=== PATIENT | female | born 1960 | race Caucasian/White ===

== ENCOUNTER 2016-09-16 15:46 | Outpatient (CLI) | payer OTHER, MEDICARE | END 2016-09-16 15:47 | disposition home or self-care (01) | DX: M47.812 Spondylosis without myelopathy or radiculopathy, cervical region (principal); M50.30 Other cervical disc degeneration, unspecified cervical region ==

== ENCOUNTER 2016-09-24 12:45 | Outpatient (CLI) | payer OTHER, MEDICARE | END 2016-09-24 12:46 | disposition home or self-care (01) | DX: M50.221 Other cervical disc displacement at C4-C5 level (principal); M43.12 Spondylolisthesis, cervical region; M47.812 Spondylosis without myelopathy or radiculopathy, cervical region ==

== ENCOUNTER 2016-11-30 10:49 | Outpatient (CLI) | payer OTHER, MEDICARE | END 2016-11-30 10:50 | disposition home or self-care (01) | DX: E03.9 Hypothyroidism, unspecified (principal); I10 Essential (primary) hypertension; Z79.899 Other long term (current) drug therapy ==

== ENCOUNTER 2016-12-24 13:51 | Outpatient (CLI) | payer OTHER, MEDICARE | END 2016-12-24 13:52 | disposition home or self-care (01) | DX: D17.79 Benign lipomatous neoplasm of other sites (principal) ==

== ENCOUNTER 2017-08-09 09:30 | Outpatient (CLI) | payer OTHER, MEDICARE ==
[2017-08-09 13:48] LABS: BASOPHILS % (AUTO) 0.8 %; EOSINOPHILS # (AUTO) 0.4 10^3/uL (0.0-0.7); EOSINOPHILS % (AUTO) 6.2 %; HGB - HEMOGLOBIN 15.2 g/dL (12.0-16.0); LYMPHOCYTES # (AUTO) 2.3 10^3/uL (1.5-3.5); LYMPHOCYTES % (AUTO) 36.1 %; MEAN CORPUSCULAR HEMOGLOBIN 28.4 pg (27.0-31.0); MEAN CORPUSCULAR HGB CONC 33.8 g/dL (32.0-36.0); MEAN CORPUSCULAR VOLUME 84.2 fL (81.0-99.0); MEAN PLATELET VOLUME 7.9 fL (7.9-10.8); MONOCYTES # (AUTO) 0.5 10^3/uL (0.0-1.0); MONOCYTES % (AUTO) 7.4 %; NEUTROPHILS # (AUTO) 3.2 10^3/uL (1.5-6.6); NEUTROPHILS % (AUTO) 49.5 %; NUCLEATED RED BLOOD CELLS AUTO 0.1 /100WBC; RED BLOOD COUNT 5.35 10^6/uL (4.20-5.40); RED CELL DISTRIBUTION WIDTH 13.1 % (12.0-15.0); UNCORRECTED WHITE BLOOD COUNT 6.5 x10^3/uL; WHITE BLOOD COUNT 6.5 x10^3/uL (4.8-10.8)
[2017-08-09 13:54] LABS: CALCIUM 9.2 mg/dL (8.5-10.3); CREATININE 0.5 mg/dL (0.4-1.0); POTASSIUM 3.8 mmol/L (3.5-5.0)
== END 2017-08-09 09:31 | disposition home or self-care (01) ==
LOC: LAB.R 09:30
PROVIDERS: ATTEND Otolaryngology
DX: Z01.818 Encounter for other preprocedural examination (principal); I10 Essential (primary) hypertension; D37.030 Neoplasm of uncertain behavior of the parotid salivary glands; E03.9 Hypothyroidism, unspecified
CPT/HCPCS: 80048; 85025

== ENCOUNTER 2018-02-08 08:00 | Outpatient (CLI) | payer OTHER, MEDICARE ==
[2018-02-08 12:59] LABS: BASOPHILS # (AUTO) 0.1 10^3/uL (0.0-0.1); BASOPHILS % (AUTO) 0.9 %; EOSINOPHILS # (AUTO) 0.3 10^3/uL (0.0-0.7); EOSINOPHILS % (AUTO) 4.3 %; HGB - HEMOGLOBIN 15.4 g/dL (12.0-16.0); LYMPHOCYTES # (AUTO) 2.6 10^3/uL (1.5-3.5); LYMPHOCYTES % (AUTO) 34.5 %; MEAN CORPUSCULAR HGB CONC 34.1 g/dL (32.0-36.0); MEAN CORPUSCULAR VOLUME 82.3 fL (81.0-99.0); MEAN PLATELET VOLUME 8.2 fL (7.9-10.8); MONOCYTES # (AUTO) 0.5 10^3/uL (0.0-1.0); NEUTROPHILS # (AUTO) 4.2 10^3/uL (1.5-6.6); NEUTROPHILS % (AUTO) 54.3 %; PLT - PLATELET COUNT 306 10^3/uL (130-450); RED BLOOD COUNT 5.49 10^6/uL (4.20-5.40); WHITE BLOOD COUNT 7.7 x10^3/uL (4.8-10.8)
[2018-02-08 13:22] LABS: ALBUMIN/GLOBULIN RATIO 1.1 (1.0-2.2); BILIRUBIN,TOTAL 0.9 mg/dL (0.2-1.0); CALCIUM 9.1 mg/dL (8.5-10.3); CREATININE 0.6 mg/dL (0.4-1.0); TOTAL PROTEIN 7.5 g/dL (6.7-8.2)
[2018-02-09 12:57] LABS: HEPATITIS C ANTIBODY NON-REACTIVE (NON-REACTIVE)
== END 2018-02-08 08:01 | disposition home or self-care (01) ==
LOC: LAB.R 08:00
PROVIDERS: ATTEND Internal Medicine
DX: E03.9 Hypothyroidism, unspecified (principal); I10 Essential (primary) hypertension; D11.9 Benign neoplasm of major salivary gland, unspecified; Z72.89 Other problems related to lifestyle
CPT/HCPCS: 80053; 84443; 85025; 86803

== ENCOUNTER 2018-11-11 09:22 | Emergency (ER) | payer BC, MEDICARE ==
[2018-11-11 11:34] LABS: BILIRUBIN,URINE NEGATIVE (NEGATIVE); GLUCOSE, URINE (UA) NEGATIVE (NEGATIVE); KETONES,URINE (UA) NEGATIVE (NEGATIVE); LEUKOCYTE ESTERASE, URINE TRACE (NEGATIVE); NITRITE,URINE NEGATIVE (NEGATIVE); OCCULT BLOOD,URINE NEGATIVE (NEGATIVE); PH,URINE 5.5 PH (5.0-7.5); PROTEIN,URINE NEGATIVE (NEGATIVE); UROBILINOGEN,URINE 0.2 (NORMAL) E.U./dL (NORMAL)
[2018-11-11 11:39] LABS: CLARITY,URINE CLEAR (CLEAR)
[2018-11-11 12:02] LABS: BACTERIA,URINE Rare /HPF (None Seen); RBC,URINE 0-5 /HPF (0-5); SQUAMOUS EPITHELIAL CELL,UR RARE Squamous (<= Few)
--- NOTE | 2018-11-11 12:45 | ED Physician Documentation ---
PD HPI BACK PAIN - Stated complaint Stated Complaint: RASH/UP LFT BACK PX - Chief complaint Chief Complaint: General - History obtained from History obtained from: Patient - History of Present Illness Timing - onset: How many days ago (3) Timing - duration: Days (3) Timing - details: Still present Location: Mid, Left Quality: Pain Worsened by: Other (inspiration; lying on left side.) Similar symptoms before: Has not had sx before - Treatment prior to arrival Treatment prior to arrival: Hydromorphone, baclofen, and Aleve, without relief. - Additional information Additional information: The patient is a 57-year-old female who presents with pain in her left posterior thorax. The pain started 4 days ago when she awoke. There was no traumatic injury. It is worse with inspiration, or with lying on her left side. She denies any associated cough, fever, abdominal pain, nausea, vomiting, or dysuria. She denies rash. She denies history of similar symptoms in the past. She does have a history of lumbar surgery x5 and has chronic lower back pain. She has tried using her pain regimen for her lower back pain, including hydromorphone, Aleve, and baclofen. That has not relieved her discomfort. Review of Systems Constitutional: denies: Fever, Fatigue Ears: denies: Tinnitus/ringing Nose: denies: Congestion Throat: denies: Sore throat Cardiac: reports: Chest pain / pressure (left posterior). denies: Palpitations Respiratory: denies: Dyspnea, Cough GI: denies: Abdominal Pain, Nausea, Vomiting : denies: Dysuria Skin: denies: Rash Musculoskeletal: reports: Back pain (left thoracic). denies: Extremity pain, Extremity swelling Neurologic: denies: Focal weakness, Numbness PD PAST MEDICAL HISTORY - Past Medical History Past Medical History: Yes Cardiovascular: Hypertension Respiratory: Sleep apnea Endocrine/Autoimmune: HyPOthyroidism GI: GERD PROCESS DEVELOPMENT MANAGER: None : None HEENT: None Psych: None Musculoskeletal: Chronic back pain Derm: None - Past Surgical History Past Surgical History: Yes General: Colonoscopy Ortho: Arthroscopic surgery, Spine surgery /PROCESS DEVELOPMENT MANAGER: section, Hysterectomy HEENT: Tonsil/Adenoidectomy - Present Medications Home Medications: Ambulatory Orders Medication Instructions Recorded Confirmed Gabapentin 300 mg PO TID 06/02/13 05/18/15 HYDROmorphone [Dilaudid] 2 mg PO Q6H 06/02/13 05/18/15 Levothyroxine [Synthroid] 112 mcg PO QDAC 06/02/13 05/18/15 Losartan [Cozaar] 25 mg PO QDAC 06/02/13 05/18/15 Meloxicam 7.5 mg PO DAILY 06/02/13 05/18/15 Omeprazole [PriLOSEC] 20 mg PO DAILY 06/02/13 05/18/15 hydroCHLOROthiazide [Hydrodiuril] 25 mg PO DAILY 06/02/13 05/18/15 Estradiol 0 tab ORAL DAILY 10/16/14 05/18/15 Ondansetron [Zofran] 4 mg PO Q6H PRN #10 tablet 10/16/14 05/18/15 - Allergies Allergies/Adverse Reactions: Allergies Allergy/AdvReac Type Severity Reaction Status Date / Time aspirin Allergy Severe Hives Verified 11/11/18 09:40 ibuprofen Allergy Severe Hives Verified 11/11/18 09:40 latex Allergy Severe Rash Verified 11/11/18 09:40 NSAIDS (Non-Steroidal Allergy Severe Hives Verified 11/11/18 09:40 Anti-Inflamma Sulfa (Sulfonamide Allergy Severe Rash Verified 11/11/18 09:40 Antibiotics) adhesive Allergy Rash Verified 11/11/18 09:40 oxycodone [Oxycodone] Allergy unknown Verified 11/11/18 09:40 penicillin G AdvReac Mild unknown Verified 11/11/18 09:40 - Social History Does the pt smoke?: No Smoking Status: Never smoker Does the pt drink ETOH?: No Does the pt have substance abuse?: No - Immunizations Immunizations are current?: Yes - POLST Patient has POLST: No PD ED PE NORMAL - Vitals Vital signs reviewed: Yes (Hypertensive initially.) - General General: Alert and oriented X 3, Well developed/nourished - HEENT HEENT: Atraumatic, Pharynx benign - Neck Neck: No bony TTP, No adenopathy, No JVD - Cardiac Cardiac: RRR, No murmur - Respiratory Respiratory: No respiratory distress, Clear bilaterally, Other (No tenderness to palpation of the posterior thorax.) - Abdomen Abdomen: Soft, Non tender - Back Back: No CVA TTP, No spinal TTP, Other (Well-healed surgical scars over the lumbar spine.) - Derm Derm: No rash - Extremities Extremities: No edema, No calf tenderness / cord - Neuro Neuro: Alert and oriented X 3, No motor deficit, Normal speech Results - Vitals Vitals: Oxygen O2 Source Room air - Labs Labs: Microbiology 11/11/18 10:53 Urine Culture - Final Urine,Clean Catch Less Than 10,000 COLONIES/ML UROGENITAL CARISA Laboratory Tests 11/11/18 11/11/18 10:53 13:24 D-Dimer 262.0 H Urine Color YELLOW Urine Clarity CLEAR Urine pH 5.5 Ur Specific [place] 1.020 Urine Protein NEGATIVE Urine Glucose (UA) NEGATIVE Urine Ketones NEGATIVE Urine Occult Blood NEGATIVE Urine Nitrite NEGATIVE Urine Bilirubin NEGATIVE Urine Urobilinogen 0.2 (NORMAL) Ur Leukocyte Esterase TRACE H Urine RBC 0-5 Urine WBC 0-3 Ur Squamous Epith Cells RARE Squamous Urine Bacteria Rare Ur Microscopic Review INDICATED Urine Culture Comments INDICATED - Rads (name of study) 2-view CXR Radiology: Prelim report reviewed, EMP read contemporaneously, See rad report (Linear densities in the left posterior lung base, most likely segmental atelectasis.) PD MEDICAL DECISION MAKING - ED course Complexity details: reviewed results, re-evaluated patient, considered differ ential, d/w patient ED course: The patient's chest pain is most consistent with pleurisy. Her chest x-ray is negative except for subsegmental atelectasis, which is consistent with pleurisy. There is no evidence of pneumonia, and I doubt pulmonary embolus. D-dimer is essentially negative at 262. I discussed with her the expected course of illness, symptomatic treatment and outpatient follow-up, as well as potentially worrisome signs or symptoms that should prompt reevaluation in the emergency department. Departure - Departure Disposition: 01 Home, Self Care Clinical Impression: Pleurisy Condition: Stable Instructions: ED Chest Pain Pleurisy Comments: Continue to take Aleve or ibuprofen as needed for pain. Take deep breaths if possible. Follow-up with your primary physician within 1-2 weeks. Call to schedule an appointment. Return to the emergency department if you develop increasing pain, increased difficulty breathing, or otherwise worsening symptoms. Discharge Date/Time: 11/11/18 14:31
--- NOTE | 2018-11-11 13:51 | XRAY Report ---
Reason: dyspnea; left posterior chest pain. Procedure Date: 11/11/2018 Accession Number: [id number] / [id number] Procedure: XR - Chest 2 View X-Ray CPT Code: 57092 FULL RESULT: EXAM: CHEST RADIOGRAPHY EXAM DATE: 11/11/2018 01:29 PM. CLINICAL HISTORY: Dyspnea; left posterior chest pain. COMPARISON: XR CHEST PA AND LAT 10/05/2012 2:37 PM. TECHNIQUE: 2 views. FINDINGS: Lungs/Pleura: Interval increase in prominence of linear density in the region of the right horizontal fissure, likely small amount of fluid in the fissure. Linear opacities in the left retrocardiac region confirmed on lateral radiograph are felt to most likely represent subsegmental atelectasis. . No pleural effusion. No pneumothorax. Normal volumes. Mediastinum: Heart and mediastinal contours are unremarkable with the exception of subtle calcification of the aortic arch. Other: None. IMPRESSION: Linear densities in the left posterior lung base, most likely subsegmental atelectasis. RADIA
[2018-11-11 14:32] VITALS: BP 138/66
== END 2018-11-11 14:31 | disposition home or self-care (01) ==
LOC: ED 09:22
DX: R09.1 Pleurisy (principal); I10 Essential (primary) hypertension; E03.9 Hypothyroidism, unspecified
CPT/HCPCS: 36415; 71046; 81001; 81003; 85379; 87086; 99283

== ENCOUNTER 2019-02-07 08:08 | Outpatient (CLI) | payer BC, MEDICARE ==
[2019-02-07 08:49] LABS: BASOPHILS # (AUTO) 0.1 10^3/uL (0.0-0.1); BASOPHILS % (AUTO) 1.2 %; EOSINOPHILS # (AUTO) 0.3 10^3/uL (0.0-0.7); EOSINOPHILS % (AUTO) 3.9 %; HGB - HEMOGLOBIN 14.4 g/dL (12.0-16.0); LYMPHOCYTES # (AUTO) 2.6 10^3/uL (1.5-3.5); LYMPHOCYTES % (AUTO) 30.9 %; MEAN CORPUSCULAR HEMOGLOBIN 28.1 pg (27.0-31.0); MEAN CORPUSCULAR HGB CONC 33.2 g/dL (32.0-36.0); MEAN CORPUSCULAR VOLUME 84.6 fL (81.0-99.0); MEAN PLATELET VOLUME 7.7 fL (7.9-10.8); MONOCYTES # (AUTO) 0.4 10^3/uL (0.0-1.0); MONOCYTES % (AUTO) 5.4 %; NEUTROPHILS # (AUTO) 4.9 10^3/uL (1.5-6.6); NEUTROPHILS % (AUTO) 58.6 %; PLT - PLATELET COUNT 296 10^3/uL (130-450); RED BLOOD COUNT 5.13 10^6/uL (4.20-5.40); WHITE BLOOD COUNT 8.3 x10^3/uL (4.8-10.8)
[2019-02-07 09:08] LABS: ALBUMIN 4.1 g/dL (3.2-5.5); ALBUMIN/GLOBULIN RATIO 1.2 (1.0-2.2); ALKALINE PHOSPHATASE 42 IU/L (42-121); ALT ALANINE AMINOTRANSFERASE 20 IU/L (10-60); AST ASPARTATE AMINOTRANSFERASE 24 IU/L (10-42); BILIRUBIN,TOTAL 0.4 mg/dL (0.2-1.0); BUN - BLOOD UREA NITROGEN 17 mg/dL (6-20); CALCIUM 9.2 mg/dL (8.5-10.3); CARBON DIOXIDE - CO2 22 mmol/L (21-32); CHLORIDE 104 mmol/L (101-111); CHOL/HDL RATIO 3.9 (<4.4); CHOLESTEROL 192 mg/dL; CREATININE 0.7 mg/dL (0.4-1.0); GFR - MDRD 86 (>89); GLUCOSE 105 mg/dL (70-100); HDL CHOLESTEROL 49 mg/dL; LDL CHOLESTEROL,CALCULATED 107 mg/dL; LDL/HDL RATIO 2.2 (<4.4); SODIUM 137 mmol/L (135-145); TOTAL PROTEIN 7.6 g/dL (6.7-8.2); VLDL CHOLESTEROL 36 mg/dL
== END 2019-02-07 08:09 | disposition home or self-care (01) ==
LOC: LAB 08:08
PROVIDERS: ATTEND Nurse Practitioner
DX: E03.9 Hypothyroidism, unspecified (principal); I10 Essential (primary) hypertension; Z79.899 Other long term (current) drug therapy
CPT/HCPCS: 36415; 80053; 80061; 83721; 84443; 85025

== ENCOUNTER 2019-02-10 15:32 | Emergency (ER) | payer BC, MEDICARE ==
[2019-02-10 16:44] LABS: BASOPHILS # (AUTO) 0.1 10^3/uL (0.0-0.1); BASOPHILS % (AUTO) 0.3 %; EOSINOPHILS % (AUTO) 0.2 %; HGB - HEMOGLOBIN 15.5 g/dL (12.0-16.0); MEAN CORPUSCULAR HEMOGLOBIN 27.8 pg (27.0-31.0); MEAN CORPUSCULAR HGB CONC 32.8 g/dL (32.0-36.0); MEAN CORPUSCULAR VOLUME 84.6 fL (81.0-99.0); MEAN PLATELET VOLUME 7.8 fL (7.9-10.8); MONOCYTES # (AUTO) 0.5 10^3/uL (0.0-1.0); MONOCYTES % (AUTO) 2.6 %; NEUTROPHILS # (AUTO) 17.7 10^3/uL (1.5-6.6); NEUTROPHILS % (AUTO) 91.9 %; PLT - PLATELET COUNT 327 10^3/uL (130-450); RED BLOOD COUNT 5.57 10^6/uL (4.20-5.40); RED CELL DISTRIBUTION WIDTH 13.2 % (12.0-15.0); WHITE BLOOD COUNT 19.2 x10^3/uL (4.8-10.8)
[2019-02-10 16:51] LABS: ALBUMIN 4.5 g/dL (3.2-5.5); ALBUMIN/GLOBULIN RATIO 1.3 (1.0-2.2); BILIRUBIN,TOTAL 0.7 mg/dL (0.2-1.0); CALCIUM 9.3 mg/dL (8.5-10.3); CREATININE 0.6 mg/dL (0.4-1.0); TOTAL PROTEIN 8.1 g/dL (6.7-8.2)
[2019-02-10] MEDS ORDERED: HYDROmorphone 1 MG/ML CARPUJECT IVP STA (17:36)
[2019-02-10] MEDS ORDERED: SODIUM CHLORIDE 0.9% 1,000 ML IV ONE (17:36)
[2019-02-10 17:37] LABS: BILIRUBIN,URINE NEGATIVE (NEGATIVE); GLUCOSE, URINE (UA) NEGATIVE (NEGATIVE); KETONES,URINE (UA) NEGATIVE (NEGATIVE); LEUKOCYTE ESTERASE, URINE NEGATIVE (NEGATIVE); NITRITE,URINE NEGATIVE (NEGATIVE); OCCULT BLOOD,URINE NEGATIVE (NEGATIVE); PROTEIN,URINE NEGATIVE (NEGATIVE); UROBILINOGEN,URINE 0.2 (NORMAL) E.U./dL (NORMAL)
--- NOTE | 2019-02-10 17:38 | ED Physician Documentation ---
PD HPI ABD PAIN - Stated complaint Stated Complaint: RECTAL BLEED - Chief complaint Chief Complaint: Abd Pain - History obtained from History obtained from: Patient, Family ( Tian) - History of Present Illness Timing - onset: Today (She developed lower abdominal pain and hematochezia today. Initially the hematochezia was associated with bowel movements but now it is just blood. She has a history of hemorrhoid that is not bothering her. Last colonoscopy was 13 years ago and negative per her.) Review of Systems Ten Systems: 10 systems reviewed and negative Constitutional: denies: Fever, Chills Throat: denies: Dental pain / toothache, Sore throat Cardiac: denies: Chest pain / pressure, Palpitations PD PAST MEDICAL HISTORY - Past Medical History Cardiovascular: Hypertension Respiratory: Sleep apnea Endocrine/Autoimmune: HyPOthyroidism GI: GERD INFORMATION TECHNOLOGY DIRECTOR: None : None HEENT: None Psych: None Musculoskeletal: Chronic back pain Derm: None - Past Surgical History Past Surgical History: Yes General: Colonoscopy Ortho: Arthroscopic surgery, Spine surgery /INFORMATION TECHNOLOGY DIRECTOR: section, Hysterectomy HEENT: Tonsil/Adenoidectomy - Present Medications Home Medications: Ambulatory Orders Medication Instructions Recorded Confirmed Gabapentin 300 mg PO TID 06/02/13 05/18/15 HYDROmorphone [Dilaudid] 2 mg PO Q6H 06/02/13 05/18/15 Levothyroxine [Synthroid] 112 mcg PO QDAC 06/02/13 05/18/15 Losartan [Cozaar] 25 mg PO QDAC 06/02/13 05/18/15 Meloxicam 7.5 mg PO DAILY 06/02/13 05/18/15 Omeprazole [PriLOSEC] 20 mg PO DAILY 06/02/13 05/18/15 hydroCHLOROthiazide [Hydrodiuril] 25 mg PO DAILY 06/02/13 05/18/15 Estradiol 0 tab ORAL DAILY 10/16/14 05/18/15 Ondansetron [Zofran] 4 mg PO Q6H PRN #10 tablet 10/16/14 05/18/15 Ciprofloxacin HCl [Cipro] 500 mg PO BID #20 tablet 02/10/19 Metronidazole [Flagyl] 500 mg PO TID #30 tablet 02/10/19 - Allergies Allergies/Adverse Reactions: Allergies Allergy/AdvReac Type Severity Reaction Status Date / Time aspirin Allergy Severe Hives Verified 11/11/18 09:40 ibuprofen Allergy Severe Hives Verified 11/11/18 09:40 latex Allergy Severe Rash Verified 11/11/18 09:40 NSAIDS (Non-Steroidal Allergy Severe Hives Verified 11/11/18 09:40 Anti-Inflamma Sulfa (Sulfonamide Allergy Severe Rash Verified 11/11/18 09:40 Antibiotics) adhesive Allergy Rash Verified 11/11/18 09:40 amoxicillin [From Augmentin] Allergy Rash Verified 02/10/19 15:50 clavulanic acid Allergy Rash Verified 02/10/19 15:50 [From Augmentin] oxycodone [Oxycodone] Allergy unknown Verified 11/11/18 09:40 penicillin G AdvReac Mild unknown Verified 11/11/18 09:40 - Social History Does the pt smoke?: No Smoking Status: Never smoker Does the pt drink ETOH?: No Does the pt have substance abuse?: No - Family History Family history: reports: Non contributory - Immunizations Immunizations are current?: Yes - POLST Patient has POLST: No PD ED PE NORMAL - Vitals Vital signs reviewed: Yes - General General: Alert and oriented X 3, No acute distress - HEENT HEENT: PERRL, EOMI - Neck Neck: Supple, no meningeal sign, No bony TTP - Cardiac Cardiac: RRR, No murmur - Respiratory Respiratory: No respiratory distress, Clear bilaterally - Abdomen Abdomen: Other (Modest lower abdominal tenderness central and left more than right without surgical signs.) - 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[employer]), Other (Small external hemorrhoid without evidence of recent active bleeding, a small amount of blood in the vault without mass.) - Back Back: No CVA TTP, No spinal TTP - Derm Derm: Normal color, Warm and dry - Extremities Extremities: No edema, No calf tenderness / cord - Neuro Neuro: Alert and oriented X 3, Normal speech Results - Vitals Vitals: Vital Signs - 24 hr 02/10/19 15:50 Temperature 36.7 C Heart Rate 106 H Respiratory 16 Rate Blood Pressure 144/75 H O2 Saturation 97 Oxygen O2 Source Room air - Labs Labs: Laboratory Tests 02/10/19 02/10/19 02/10/19 11:45 16:14 16:14 WBC 19.2 H RBC 5.57 H Hgb 15.5 Hct 47.1 H MCV 84.6 MCH 27.8 MCHC 32.8 RDW 13.2 Plt Count 327 MPV 7.8 L Neut # (Auto) 17.7 H Lymph # (Auto) 1.0 L [place] # (Auto) 0.5 Eos # (Auto) 0.0 Baso # (Auto) 0.1 Absolute Nucleated RBC 0.00 Nucleated RBC % 0.0 PT INR Sodium 138 Potassium 3.1 L Chloride 103 Carbon Dioxide 22 Anion Gap 13.0 BUN 21 H Creatinine 0.6 Estimated GFR (MDRD) 102 Glucose 174 H Calcium 9.3 Total Bilirubin 0.7 AST 25 ALT 22 Alkaline Phosphatase 45 Total Protein 8.1 Albumin 4.5 Globulin 3.6 Albumin/Globulin Ratio 1.3 Lipase 29 Urine Color Cancelled Urine Clarity Cancelled Urine pH Cancelled Ur Specific [place] Cancelled Urine Protein Cancelled Urine Glucose (UA) Cancelled Urine Ketones Cancelled Urine Occult Blood Cancelled Urine Nitrite Cancelled Urine Bilirubin Cancelled Urine Urobilinogen Cancelled Ur Leukocyte Esterase Cancelled Ur Microscopic Review Cancelled Urine Culture Comments Cancelled Blood Type Blood Type Recheck Antibody Screen 02/10/19 02/10/19 02/10/19 16:14 16:14 17:30 WBC RBC Hgb Hct MCV MCH MCHC RDW Plt Count MPV Neut # (Auto) Lymph # (Auto) [place] # (Auto) Eos # (Auto) Baso # (Auto) Absolute Nucleated RBC Nucleated RBC % PT 12.5 INR 1.1 Sodium Potassium Chloride Carbon Dioxide Anion Gap BUN Creatinine Estimated GFR (MDRD) Glucose Calcium Total Bilirubin AST ALT Alkaline Phosphatase Total Protein Albumin Globulin Albumin/Globulin Ratio Lipase Urine Color YELLOW Urine Clarity CLEAR Urine pH 6.0 Ur Specific [place] 1.015 Urine Protein NEGATIVE Urine Glucose (UA) NEGATIVE Urine Ketones NEGATIVE Urine Occult Blood NEGATIVE Urine Nitrite NEGATIVE Urine Bilirubin NEGATIVE Urine Urobilinogen 0.2 (NORMAL) Ur Leukocyte Esterase NEGATIVE Ur Microscopic Review NOT INDICATED Urine Culture Comments NOT INDICATED Blood Type Blood Type Recheck A POSITIVE Antibody Screen 02/10/19 02/10/19 17:51 18:40 WBC RBC Hgb 14.0 Hct 41.7 MCV MCH MCHC RDW Plt Count MPV Neut # (Auto) Lymph # (Auto) [place] # (Auto) Eos # (Auto) Baso # (Auto) Absolute Nucleated RBC Nucleated RBC % PT INR Sodium Potassium Chloride Carbon Dioxide Anion Gap BUN Creatinine Estimated GFR (MDRD) Glucose Calcium Total Bilirubin AST ALT Alkaline Phosphatase Total Protein Albumin Globulin Albumin/Globulin Ratio Lipase Urine Color Urine Clarity Urine pH Ur Specific [place] Urine Protein Urine Glucose (UA) Urine Ketones Urine Occult Blood Urine Nitrite Urine Bilirubin Urine Urobilinogen Ur Leukocyte Esterase Ur Microscopic Review Urine Culture Comments Blood Type A POSITIVE Blood Type Recheck Antibody Screen NEGATIVE - Rads (name of study) CT A/P Radiology: EMP read contemporaneously (Mild distal sigmoid diverticulitis) PD MEDICAL DECISION MAKING - ED course ED course: 58-year-old woman with hematochezia and lower abdominal pressure and tenderness most consistent with diverticulitis which is proven on CT. Her hemodynamics and H&H are reassuring and a subsequent H&H dropped only a little bit and stayed within the normal range despite receiving a liter of crystalloid. She requested discharge and this is reasonable. Follow-up colonoscopy recommended. Departure - Departure Disposition: 01 Home, Self Care Clinical Impression: Diverticulitis, Lower GI bleed Condition: Good Record reviewed to determine appropriate education?: Yes Instructions: ED Hematochezia Stable, ED Diverticulitis Prescriptions: Ciprofloxacin HCl [Cipro] 500 mg PO BID #20 tablet Metronidazole [Flagyl] 500 mg PO TID #30 tablet Comments: As discussed, follow-up with your primary care physician next week as scheduled. Discuss colonoscopy which should happen in about 8 weeks time. Return for new or worsening symptoms, if bleeding does not go away within the next 12 to 24 hours or if feeling symptomatic with dizziness.
[2019-02-10 17:42] LABS: CLARITY,URINE CLEAR (CLEAR)
[2019-02-10 17:48] LABS: INR 1.1 (0.8-1.2); PT - PROTHROMBIN TIME 12.5 secs (9.9-12.6)
[2019-02-10] MEDS ORDERED: IOVERSOL 320 100 ML VIAL IVP ONE ×2 (18:01→18:25)
--- NOTE | 2019-02-10 18:57 | CT Report ---
Reason: IV only, low abd pain and hematochezia Procedure Date: 02/10/2019 Accession Number: [id number] / [id number] Procedure: CT - Abdomen/Pelvis W CPT Code: FULL RESULT: EXAM: CT ABDOMEN AND PELVIS EXAM DATE: 02/10/2019 06:23 PM. CLINICAL HISTORY: IV only, low abd pain and hematochezia. COMPARISONS: ABDOMEN/PELVIS W/ 10/16/2014 7:10 PM. TECHNIQUE: Routine helical CT imaging was performed through the abdomen and pelvis. IV contrast: 90 cc Optiray 320 IV. Enteric contrast: No. Reconstructions: Coronal and sagittal. In accordance with CT protocol optimization, one or more of the following dose reduction techniques were utilized for this exam: automated exposure control, adjustment of mA and/or KV based on patient size, or use of iterative reconstructive technique. FINDINGS: Lung Bases: Unremarkable. Liver: Normal. No masses. Gallbladder/Bile Ducts: Unremarkable. Spleen: Normal. Pancreas: There is fatty replacement of the pancreas without significant interval change. No focal pancreatic lesion or inflammation by CT. Adrenal Glands: Normal. Kidneys: Normal. No masses or hydronephrosis. Peritoneal Cavity/Bowel: There are a mild number of diverticula within the colon. There is a very mild amount of fat stranding around the distal sigmoid colon in the low pelvis. Small bowel appears unremarkable. No dilated bowel or obstruction. No free fluid or free air. No abscess or hematoma. Pelvic Organs: Normal. The bladder and visualized pelvic organs are within normal limits. Vasculature: No aneurysms or other significant abnormality. Bones: No significant abnormality. Other: None. IMPRESSION: 1. Suspicious for mild diverticulitis of the distal sigmoid colon in the pelvis. 2. No other localizing inflammatory process. No abscess or bowel obstruction. RADIA
[2019-02-10] MEDS ORDERED: metroNIDAZOLE 250 MG TABLET PO STA (19:06)
[2019-02-10] MEDS ORDERED: CIPROFLOXACIN 250 MG TABLET PO STA (19:06)
[2019-02-10 19:27] VITALS: BP 147/79
== END 2019-02-10 19:27 | disposition home or self-care (01) ==
LOC: ED 15:32
DX: K57.33 Diverticulitis of large intestine without perforation or abscess with bleeding (principal); K64.4 Residual hemorrhoidal skin tags; I10 Essential (primary) hypertension
CPT/HCPCS: 36415; 74177; 80053; 81003; 83690; 85014; 85018; 85025; 85610; 86850; 86900; 86901; 87493; 96361; 96374; 99283; 99284; A9270; J1170; Q9967; 81001; 87045; 87046; 87086

== ENCOUNTER 2019-03-02 13:37 | Outpatient (CLI) | payer BC, MEDICARE ==
--- NOTE | 2019-03-03 09:40 | Mammography Report ---
Reason: MAMMOGRAM YEARLY SCREENING Procedure Date: 03/02/2019 Accession Number: [id number] / [id number] Procedure: JOCELYNE - Screening Mammo w/Dmitry CPT Code: FULL RESULT: EXAM: Screening Mammo w/Dmitry DATE: 03/02/2019 2:29 PM CLINICAL HISTORY: Screening encounter. Family history of breast cancer in the maternal grandmother at age 50, paternal grandmother at age 50, maternal aunt at age 60. Personal history of multiple bilateral excisional breast biopsies with benign pathology. TECHNIQUE: (B) - Bilateral CC and MLO views were obtained. COMPARISON: 12/24/2016 through 09/13/2013. PARENCHYMAL PATTERN: (A) - The breast(s) demonstrate(s) scattered fibroglandular densities. FINDINGS: There is a stable asymmetric nodular pattern of the breast parenchyma with unchanged postsurgical appearance, typically benign. There are no suspicious masses, calcifications, or areas of distortion. IMPRESSION: Benign findings. BI-RADS category 2. RECOMMENDATION: (ANNUAL) - Recommend routine annual screening mammography. BI-RADS CATEGORY: (2) - Benign Findings. STANDARD QUALIFYING STATEMENTS: 1. This examination was not reviewed with the aid of Computer-Aided Detection (CAD). 2. A negative or benign imaging report should not preclude biopsy if clinically suspicious findings are present. 3. Dense breasts may obscure an underlying neoplasm. 4. This examination was reviewed with the aid of 3D breast imaging (tomosynthesis).
== END 2019-03-02 13:38 | disposition home or self-care (01) ==
LOC: DI 13:37
PROVIDERS: ATTEND Nurse Practitioner
DX: Z12.31 Encounter for screening mammogram for malignant neoplasm of breast (principal)
CPT/HCPCS: 77063; 77067

== ENCOUNTER 2020-10-15 09:00 | Outpatient (CLI) | payer MEDICARE, OTHER ==
[2020-10-15 09:20] LABS: BASOPHILS # (AUTO) 0.1 10^3/uL (0.0-0.1); BASOPHILS % (AUTO) 0.9 %; EOSINOPHILS # (AUTO) 0.4 10^3/uL (0.0-0.7); EOSINOPHILS % (AUTO) 4.8 %; LYMPHOCYTES # (AUTO) 2.5 10^3/uL (1.5-3.5); LYMPHOCYTES % (AUTO) 29.6 %; MEAN CORPUSCULAR HEMOGLOBIN 28.5 pg (27.0-31.0); MEAN CORPUSCULAR VOLUME 89.2 fL (81.0-99.0); MONOCYTES # (AUTO) 0.4 10^3/uL (0.0-1.0); MONOCYTES % (AUTO) 5.2 %; PLT - PLATELET COUNT 331 10^3/uL (130-450); RED BLOOD COUNT 5.26 10^6/uL (4.20-5.40); RED CELL DISTRIBUTION WIDTH 12.7 % (12.0-15.0); WHITE BLOOD COUNT 8.5 x10^3/uL (4.8-10.8)
[2020-10-15 09:36] LABS: ALBUMIN 4.3 g/dL (3.2-5.5); ALBUMIN/GLOBULIN RATIO 1.2 (1.0-2.2); ALKALINE PHOSPHATASE 47 IU/L (42-121); ALT ALANINE AMINOTRANSFERASE 23 IU/L (10-60); AST ASPARTATE AMINOTRANSFERASE 23 IU/L (10-42); BILIRUBIN,TOTAL 0.7 mg/dL (0.2-1.0); BUN - BLOOD UREA NITROGEN 15 mg/dL (6-20); CALCIUM 9.4 mg/dL (8.5-10.3); CARBON DIOXIDE - CO2 23 mmol/L (21-32); CHLORIDE 103 mmol/L (101-111); CHOL/HDL RATIO 4.2 (<4.4); CHOLESTEROL 216 mg/dL; CREATININE 0.7 mg/dL (0.4-1.0); GLUCOSE 112 mg/dL (70-100); HDL CHOLESTEROL 52 mg/dL; LDL CHOLESTEROL,CALCULATED 128 mg/dL; LDL/HDL RATIO 2.5 (<4.4); TOTAL PROTEIN 7.9 g/dL (6.7-8.2); VLDL CHOLESTEROL 36 mg/dL
== END 2020-10-15 09:01 | disposition home or self-care (01) ==
LOC: LAB 09:00
PROVIDERS: ATTEND Nurse Practitioner
DX: Z00.00 Encounter for general adult medical examination without abnormal findings (principal); I10 Essential (primary) hypertension; E03.9 Hypothyroidism, unspecified; Z79.899 Other long term (current) drug therapy
CPT/HCPCS: 36415; 80053; 80061; 83721; 84443; 85025

== ENCOUNTER 2020-12-26 08:47 | Outpatient (CLI) | payer MEDICARE, OTHER ==
--- NOTE | 2020-12-26 10:03 | XRAY Report ---
PROCEDURE: Elbow 2 View LT INDICATIONS: ULNAR NERVE TRAPMENT, L TECHNIQUE: 2 views of the elbow were acquired. COMPARISON: None. FINDINGS: Bones: No fractures or dislocations. No suspicious bony lesions. Mild cortical hypertrophy involvi ng the medial and lateral condyles. Soft tissues: No elbow joint effusion. No suspicious soft tissue calcifications. IMPRESSION: No fracture. Cortical changes raise possibility of chronic lateral and medial epicondylitis. If the p atient's pain or other symptoms persist, consider further evaluation with MRI. Reviewed by: Dion Jewell MD on 12/26/2020 10:02 AM PDT Approved by: Dion Jewell MD on 12/26/2020 10:02 AM PDT Station ID: [id number]
== END 2020-12-26 08:48 | disposition home or self-care (01) ==
LOC: DI 08:47
PROVIDERS: ATTEND Family Medicine
DX: R93.6 Abnormal findings on diagnostic imaging of limbs (principal)

== ENCOUNTER 2021-01-09 09:00 | Outpatient (CLI) | payer MEDICARE, OTHER ==
--- NOTE | 2021-01-10 09:35 | Mammography Report ---
BILATERAL DIGITAL SCREENING MAMMOGRAM 3D/2D: 01/09/2021 CLINICAL: Routine screening. Comparison is made to exams dated: 03/02/2019 mammogram, 12/24/2016 mammogram, 11/07/2015 mammogram, 11/04 mammogram, and 09/13/2013 mammogram - [facility]. The tissue of both breasts is heterogeneously dense. This may lower the sensitivity of mammography. No significant masses, calcifications, or other findings are seen in either breast. There has been no significant interval change. IMPRESSION: NEGATIVE There is no mammographic evidence of malignancy. A 1 year screening mammogram is recommended. This exam was interpreted at Station ID: [id number]. NOTE: For mammograms, a report in lay terms will be sent to the patient. Approximately 15% of breast malignancies will not be visualized mammographically. In the management of a palpable breast mass, a negative mammogram must not discourage biopsy of a clinically suspicious lesion. Electronically Signed By: Felix hollins/aries:01/09/2021 10:13:12 ACR BI-RADS Category 1: Negative 3341F PARENCHYMAL PATTERN: (D) - The breast(s) demonstrate(s) heterogeneously dense fibroglandular pareufemiay ma. BI-RADS CATEGORY: (1) - 1 RECOMMENDATION: (ANNUAL) - Recommend routine annual screening mammography. [id number] 1 year screening LATERALITY: (B)
== END 2021-01-09 09:01 | disposition home or self-care (01) ==
LOC: DI 09:00
PROVIDERS: ATTEND Family Medicine
DX: Z12.31 Encounter for screening mammogram for malignant neoplasm of breast (principal)

== ENCOUNTER 2022-02-18 08:46 | Outpatient (CLI) | payer MEDICARE, OTHER ==
[2022-02-18 09:22] LABS: BASOPHILS # (AUTO) 0.1 10^3/uL (0.0-0.1); BASOPHILS % (AUTO) 0.6 %; EOSINOPHILS # (AUTO) 0.4 10^3/uL (0.0-0.7); EOSINOPHILS % (AUTO) 4.1 %; HCT - HEMATOCRIT 45.9 % (37.0-47.0); HGB - HEMOGLOBIN 15.3 g/dL (12.0-16.0); LYMPHOCYTES # (AUTO) 2.1 10^3/uL (1.5-3.5); LYMPHOCYTES % (AUTO) 21.8 %; MEAN CORPUSCULAR HGB CONC 33.3 g/dL (32.0-36.0); MEAN CORPUSCULAR VOLUME 87.1 fL (81.0-99.0); MEAN PLATELET VOLUME 9.4 fL (7.9-10.8); MONOCYTES # (AUTO) 0.6 10^3/uL (0.0-1.0); MONOCYTES % (AUTO) 6.1 %; NEUTROPHILS # (AUTO) 6.4 10^3/uL (1.5-6.6); PLT - PLATELET COUNT 321 10^3/uL (130-450); RED BLOOD COUNT 5.27 10^6/uL (4.20-5.40); RED CELL DISTRIBUTION WIDTH 12.5 % (12.0-15.0); WHITE BLOOD COUNT 9.5 x10^3/uL (4.8-10.8)
[2022-02-18 09:34] LABS: ALBUMIN 4.1 g/dL (3.2-5.5); ALBUMIN/GLOBULIN RATIO 1.1 (1.0-2.2); ALKALINE PHOSPHATASE 50 IU/L (42-121); ALT ALANINE AMINOTRANSFERASE 27 IU/L (10-60); AST ASPARTATE AMINOTRANSFERASE 26 IU/L (10-42); BILIRUBIN,TOTAL 0.6 mg/dL (0.2-1.0); BUN - BLOOD UREA NITROGEN 20 mg/dL (6-20); CALCIUM 9.4 mg/dL (8.5-10.3); CARBON DIOXIDE - CO2 25 mmol/L (21-32); CHLORIDE 104 mmol/L (101-111); CHOL/HDL RATIO 4.3 (<4.4); CHOLESTEROL 202 mg/dL; CREATININE 0.7 mg/dL (0.4-1.0); GFR - MDRD 85 (>89); GLUCOSE 107 mg/dL (70-100); HDL CHOLESTEROL 47 mg/dL; LDL CHOLESTEROL,CALCULATED 114 mg/dL; LDL/HDL RATIO 2.4 (<4.4); POTASSIUM 3.8 mmol/L (3.5-5.0); SODIUM 139 mmol/L (135-145); TOTAL PROTEIN 7.8 g/dL (6.7-8.2); TRIGLYCERIDES 203 mg/dL; VLDL CHOLESTEROL 41 mg/dL
[2022-02-18 09:41] LABS: THYROID STIMULATING HORMONE 0.42 uIU/mL (0.34-5.60)
== END 2022-02-18 08:47 | disposition home or self-care (01) ==
LOC: LAB 08:46
PROVIDERS: ATTEND Family Medicine
DX: G03.9 Meningitis, unspecified (principal); K57.90 Diverticulosis of intestine, part unspecified, without perforation or abscess without bleeding; E66.3 Overweight; E03.9 Hypothyroidism, unspecified; I10 Essential (primary) hypertension
CPT/HCPCS: 36415; 80053; 80061; 83721; 84443; 85025

== ENCOUNTER 2022-12-24 10:55 | Outpatient (CLI) | payer MEDICARE, OTHER ==
--- NOTE | 2022-12-24 20:24 | XRAY Report ---
PROCEDURE: Cervical Spine Complete INDICATIONS: MUSCLE SPASM OF NECK TECHNIQUE: 5 views of the cervical spine acquired. COMPARISON: Cervical spine radiographs 09/16/2016 FINDINGS: Bones: No fractures or dislocations to the C6 level. Moderate multilevel degenerative changes with disc height loss, endplate spurring, and facet arthropathy. Straightening of the normal cervical lord osis, a finding which can be seen in the setting of muscle strain and/or spasm. Minimal bony foramina l narrowing upper cervical spine. Soft tissues: No prevertebral soft tissue swelling. IMPRESSION: Multilevel degenerative changes of the cervical spine. Reviewed by: Aurelio Cornejo MD on 12/24/2022 8:23 PM PDT Approved by: Aurelio Cornejo MD on 12/24/2022 8:23 PM PDT Station ID: [id number]
== END 2022-12-24 10:56 | disposition home or self-care (01) ==
LOC: DI 10:55
PROVIDERS: ATTEND Family Medicine
DX: M47.812 Spondylosis without myelopathy or radiculopathy, cervical region (principal); M50.30 Other cervical disc degeneration, unspecified cervical region

== ENCOUNTER 2023-03-01 08:49 | Outpatient (CLI) | payer MEDICARE, OTHER ==
[2023-03-01 09:26] LABS: BASOPHILS # (AUTO) 0.1 10^3/uL (0.0-0.1); EOSINOPHILS # (AUTO) 0.6 10^3/uL (0.0-0.7); EOSINOPHILS % (AUTO) 7.4 %; HCT - HEMATOCRIT 44.9 % (37.0-47.0); HGB - HEMOGLOBIN 14.9 g/dL (12.0-16.0); LYMPHOCYTES # (AUTO) 2.4 10^3/uL (1.5-3.5); LYMPHOCYTES % (AUTO) 30.7 %; MEAN CORPUSCULAR HEMOGLOBIN 28.5 pg (27.0-31.0); MEAN CORPUSCULAR HGB CONC 33.2 g/dL (32.0-36.0); MEAN PLATELET VOLUME 8.9 fL (7.9-10.8); MONOCYTES # (AUTO) 0.5 10^3/uL (0.0-1.0); MONOCYTES % (AUTO) 5.9 %; NEUTROPHILS # (AUTO) 4.3 10^3/uL (1.5-6.6); NEUTROPHILS % (AUTO) 54.6 %; PLT - PLATELET COUNT 328 10^3/uL (130-450); RED BLOOD COUNT 5.22 10^6/uL (4.20-5.40); RED CELL DISTRIBUTION WIDTH 12.7 % (12.0-15.0); WHITE BLOOD COUNT 7.9 x10^3/uL (4.8-10.8)
[2023-03-01 09:34] LABS: CALCIUM 9.1 mg/dL (8.5-10.3); CREATININE 0.7 mg/dL (0.4-1.0); POTASSIUM 3.8 mmol/L (3.5-5.0)
[2023-03-01 09:55] LABS: THYROID STIMULATING HORMONE 0.43 uIU/mL (0.34-5.60)
[2023-03-01 12:14] LABS: ESTIMATED AVERAGE GLUCOSE 114 mg/dL (70-100); HEMOGLOBIN A1c% 5.6 % (4.27-6.07)
== END 2023-03-01 08:50 | disposition home or self-care (01) ==
LOC: LAB 08:49
PROVIDERS: ATTEND Family Medicine
DX: I10 Essential (primary) hypertension (principal); G03.9 Meningitis, unspecified; F11.20 Opioid dependence, uncomplicated; E66.3 Overweight; E03.9 Hypothyroidism, unspecified; R73.9 Hyperglycemia, unspecified
CPT/HCPCS: 36415; 80048; 83036; 84443; 85025

== ENCOUNTER 2023-08-13 08:35 | Emergency (ER) | payer MEDICARE, OTHER ==
[2023-08-13 09:51] LABS: B. PARAPERTUSSIS- RESP PCR PAN NOT DETECTED; B. PERTUSSIS- RESP PCR PANEL NOT DETECTED; C. PNEUMONIAE- RESP PCR PANEL NOT DETECTED; CORONAVIRUS 229E-RESP PCR NOT DETECTED; CORONAVIRUS HKU1-RESP PCR NOT DETECTED; CORONAVIRUS NL63-RESP PCR NOT DETECTED; CORONAVIRUS OC43-RESP PCR NOT DETECTED; HUMAN METAPNEUMOVIRUS NOT DETECTED; INFLUENZA A- RESP PCR PANEL NOT DETECTED; INFLUENZA B - RESP PCR PANEL NOT DETECTED; M. PNEUMONIAE- RESP PCR PANEL NOT DETECTED; PARAINFLUENZA VIRUS 1 NOT DETECTED; PARAINFLUENZA VIRUS 2 NOT DETECTED; PARAINFLUENZA VIRUS 3 NOT DETECTED; PARAINFLUENZA VIRUS 4 NOT DETECTED; RHINOVIRUS/ENTEROVIRUS NOT DETECTED; RSV- RESP PCR PANEL NOT DETECTED; SARS-CoV-2 -RESP PCR PANEL NOT DETECTED
[2023-08-13] MEDS ORDERED: DEXAMETHASONE 10 MG/ML VIAL PO STA (11:04)
[2023-08-13] MEDS ORDERED: CHERRY SYRUP 10 ML UDC PO ONE (11:04)
--- NOTE | 2023-08-13 11:08 | ED Physician Documentation ---
History of Present Illness - Stated complaint Stated Complaint: DIZZY - Chief complaint Chief Complaint: Neuro - History obtained from History obtained from: Patient, Family - History of Present Illness Timing: How many days ago (4) - Additonal information Additional information: Abrupt onset of dizziness associated with head movement no nausea or vomiting. Persistence of symptoms for 4 days. Worse that is onset. Improved now. Not resolved. Review of Systems Constitutional: denies: Fever, Myalgias Eyes: denies: Decreased vision Ears: reports: Ear pain (to the right ear at onset) Nose: denies: Rhinorrhea / runny nose, Congestion Throat: denies: Sore throat Cardiac: denies: Chest pain / pressure, Palpitations Respiratory: denies: Dyspnea, Cough GI: reports: Nausea. denies: Abdominal Pain, Vomiting, Constipation, Diarrhea : denies: Dysuria, Frequency Skin: denies: Rash Musculoskeletal: denies: Neck pain, Back pain, Extremity pain Neurologic: denies: Generalized weakness, Focal weakness, Numbness PD PAST MEDICAL HISTORY - Past Medical History Cardiovascular: Hypertension Respiratory: Sleep apnea Endocrine/Autoimmune: HyPOthyroidism GI: GERD INSULATION ENGINEMAN: None : None HEENT: None Psych: None Musculoskeletal: Chronic back pain Derm: None - Past Surgical History Past Surgical History: Yes General: Colonoscopy Ortho: Arthroscopic surgery, Spine surgery /INSULATION ENGINEMAN: section, Hysterectomy HEENT: Tonsil/Adenoidectomy - Present Medications Home Medications: Ambulatory Orders Medication Instructions Recorded Confirmed Gabapentin 300 mg PO TID 06/02/13 05/18/15 HYDROmorphone [Dilaudid] 2 mg PO Q6H 06/02/13 05/18/15 Levothyroxine [Synthroid] 112 mcg PO QDAC 06/02/13 05/18/15 Losartan [Cozaar] 25 mg PO QDAC 06/02/13 05/18/15 Meloxicam 7.5 mg PO DAILY 06/02/13 05/18/15 Omeprazole [PriLOSEC] 20 mg PO DAILY 06/02/13 05/18/15 hydroCHLOROthiazide [Hydrodiuril] 25 mg PO DAILY 06/02/13 05/18/15 Ondansetron [Zofran] 4 mg PO Q6H PRN #10 tablet 10/16/14 05/18/15 estradioL [Estradiol] 0 tab ORAL DAILY 10/16/14 05/18/15 Ciprofloxacin HCl [Cipro] 500 mg PO BID #20 tablet 02/10/19 metroNIDAZOLE [Flagyl] 500 mg PO TID #30 tablet 02/10/19 - Allergies Allergies/Adverse Reactions: Allergies Allergy/AdvReac Type Severity Reaction Status Date / Time aspirin Allergy Severe Hives Verified 11/11/18 09:40 ibuprofen Allergy Severe Hives Verified 11/11/18 09:40 latex Allergy Severe Rash Verified 11/11/18 09:40 NSAIDS (Non-Steroidal Allergy Severe Hives Verified 11/11/18 09:40 Anti-Inflamma Sulfa (Sulfonamide Allergy Severe Rash Verified 11/11/18 09:40 Antibiotics) adhesive Allergy Rash Verified 11/11/18 09:40 amoxicillin [From Augmentin] Allergy Rash Verified 02/10/19 15:50 clavulanic acid Allergy Rash Verified 02/10/19 15:50 [From Augmentin] oxycodone [Oxycodone] Allergy unknown Verified 11/11/18 09:40 penicillin G AdvReac Mild unknown Verified 11/11/18 09:40 - Social History Does the pt smoke?: No Smoking Status: Never smoker Does the pt drink ETOH?: No Does the pt have substance abuse?: No - Immunizations Immunizations are current?: Yes - POLST Patient has POLST: No PD ED PE NORMAL - Vitals Vital signs reviewed: Yes (hypertensive ) - General General: Alert and oriented X 3, No acute distress, Well developed/nourished - HEENT HEENT: Atraumatic, PERRL, EOMI, Ears normal, Moist mucous membranes, Pharynx benign, Dentition benign, Other (minimal right sided nystagmus) - Neck Neck: Supple, no meningeal sign, No bony TTP - Cardiac Cardiac: RRR, No murmur - Respiratory Respiratory: No respiratory distress, Clear bilaterally - Abdomen Abdomen: Soft, Non tender - Back Back: No CVA TTP, No spinal TTP - Derm Derm: Normal color, Warm and dry, No rash - Extremities Extremities: No deformity, No edema - Neuro Neuro: Alert and oriented X 3, medical insurance claims specialist 2-12 intact, No motor deficit, No sensory d eficit, Normal speech Eye Opening: Spontaneous Motor: Obeys Commands Verbal: Oriented GCS Score: 15 - Psych Psych: Normal mood, Normal affect Results - Vitals Vitals: Vital Signs - 24 hr 08/13/23 08/13/23 08:45 11:34 Temperature 36.3 C L Heart Rate 97 89 Respiratory 18 18 Rate Blood Pressure 160/79 H 142/104 H O2 Saturation 97 99 Oxygen O2 Source Room air - Labs Labs: Laboratory Tests 08/13/23 08:51 Nasal Adenovirus (PCR) NOT DETECTED Nasal B. parapertussis DNA (PCR) NOT DETECTED Nasal Coronavir 229E PCR NOT DETECTED Nasal Coronavir HKU1 PCR NOT DETECTED Nasal Coronavir NL63 PCR NOT DETECTED Nasal Coronavir OC43 PCR NOT DETECTED Nasal Enterovir/Rhinovir PCR NOT DETECTED Nasal Influenza B PCR NOT DETECTED Nasal Influenza A PCR NOT DETECTED Nasal Parainfluen 1 PCR NOT DETECTED Nasal Parainfluen 2 PCR NOT DETECTED Nasal Parainfluen 3 PCR NOT DETECTED Nasal Parainfluen 4 PCR NOT DETECTED Nasal RSV (PCR) NOT DETECTED Nasal B.pertussis DNA PCR NOT DETECTED Nasal C.pneumoniae (PCR) NOT DETECTED Glenn Human Metapneumo PCR NOT DETECTED Nasal M.pneumoniae (PCR) NOT DETECTED Nasal SARS-CoV-2 (PCR) NOT DETECTED PD Medical Decision Making - ED course Complexity details: considered differential, d/w patient, d/w family ED course: 62-year-old female with acute vertigo and nausea has a normal ENT exam she does have some minimal nystagmus and her course is most consistent with acute labyrinthitis. She had tried a dose of meclizine which the did help but caused her some additional side effects that she felt were related to medication interaction. Today we have given her a dose of dexamethasone and I have encouraged her to use the meclizine as needed and separate from doses medication she feels it interacts with. Departure - Departure Disposition: 01 Home, Self Care Clinical Impression: Labyrinthitis Qualifiers: Laterality: right Qualified Code(s): H83.01 - Labyrinthitis, right ear Condition: Stable Instructions: ED Labyrinthitis Follow-Up: Shai Olivas MD [Primary Care Provider] - Comments: Angella, today it looks like you have a labyrinthitis which is a viral infection that affects the nerve to the balance mechanism. This usually lasts 7 to 10 days. It is usually worst at its onset and has variable symptoms. I usually tell people to expect to spend about a week on the couch not able to move around is much as they normally want to because of episodes of dizziness. Meclizine can help with this and should be taken as needed. Today we have given you a dose of dexamethasone which may quell your symptoms somewhat. The expectation is resolution of your symptoms in the next week and maybe some bouts of dizziness for up to 6 months that are brief in nature. Persistence of symptoms or development of new symptoms weakness or numbness or reasons to return to the emergency department for further evaluation. Forms: PCP List Discharge Date/Time: 08/13/23 11:34
[2023-08-13 11:37] VITALS: BP 142/104; O2SAT 99
== END 2023-08-13 11:34 | disposition home or self-care (01) ==
LOC: ED 08:35
DX: H83.01 Labyrinthitis, right ear (principal); I10 Essential (primary) hypertension; Z20.822 Contact with and (suspected) exposure to COVID-19
CPT/HCPCS: 87633; 99283; A9270

== ENCOUNTER 2023-12-03 10:12 | Day surgery (SDC) | payer MEDICARE, OTHER ==
[2023-12-03] MEDS ORDERED: PROPOFOL 500 MG/50 ML 500 MG/50 ML VIAL ONE (10:39)
[2023-12-03] MEDS ORDERED: LIDOCAINE-MPF 2% 5 ML VIAL ONE (10:39)
[2023-12-03] MEDS: LACTATED RINGERS 1,000 ML IV ONE (10:47)
--- NOTE | 2023-12-03 11:10 | ANESTHESIA ---
Pre-Anesthesia VS, & Labs - Diagnosis screening exam - Procedure colonoscopy Height: 5 ft 4 in Weight (kg): 89.7 kg Body Mass Index: 33.9 BMI Classification: Obese - NPO >8 hours - Is Patient ?: No Home Medications and Allergies Home Medications: Ambulatory Orders Amitriptyline [Elavil] 75 mg PO HS 12/02/23 Baclofen 1 tab PO PRN PRN 12/02/23 Gabapentin 600 mg PO TID 06/02/13 HYDROmorphone [Dilaudid] 2 mg PO Q6H 06/02/13 Levothyroxine [Synthroid] 0.75 mcg PO QDAC 06/02/13 Losartan [Cozaar] 25 mg PO QDAC 06/02/13 Omeprazole [PriLOSEC] 20 mg PO DAILY 06/02/13 hydroCHLOROthiazide [Hydrodiuril] 25 mg PO DAILY 06/02/13 Amitriptyline [Elavil] 75 mg PO HS 12/02/23 Baclofen 1 tab PO PRN PRN 12/02/23 Allergies/Adverse Reactions: Allergies Allergy/AdvReac Type Severity Reaction Status Date / Time aspirin Allergy Severe Hives Verified 12/02/23 13:21 ibuprofen Allergy Severe Hives Verified 12/02/23 13:21 latex Allergy Severe Rash Verified 12/02/23 13:21 NSAIDS (Non-Steroidal Allergy Severe Hives Verified 12/02/23 13:21 Anti-Inflamma Sulfa (Sulfonamide Allergy Severe Rash Verified 12/02/23 13:21 Antibiotics) adhesive Allergy Rash Verified 12/02/23 13:21 amoxicillin [From Augmentin] Allergy Rash Verified 12/02/23 13:21 clavulanic acid Allergy Rash Verified 12/02/23 13:21 [From Augmentin] oxycodone [Oxycodone] Allergy unknown Verified 12/02/23 13:21 penicillin G AdvReac Mild unknown Verified 12/02/23 13:21 Anes History & Medical History - Anesthetic History Anesthesia Complications: reports: No previous complications - Medical History Cardiovascular: reports: Hypertension Pulmonary: reports: Sleep apnea (mild, does not use cpap) Gastrointestinal: reports: GERD, Hemorrhoids Urinary: reports: None Neuro: reports: None Musculoskeletal: reports: Chronic back pain (opioid use for chronic pain) Endocrine/Autoimmune: reports: HyPOthyroidism Blood Disorders: reports: None Skin: reports: None Smoking Status: Never smoker Psychosocial: reports: Opioid (for chronic pain) History of Cancer?: No - Surgical History General: reports: Colonoscopy Eyes Ears Nose Throat (EENT): reports: Tonsil/Adenoidectomy Gynecologic: reports: section, Hysterectomy Orthopedic: reports: Arthroscopic surgery, Spine surgery Exam General: Alert, Oriented x3, Cooperative, No acute distress Dental: WNL Mouth Openin Fingerbreadth Neck Mobility: Normal Mallampati classification: I Thyromental Distance: 4-6 cm Mental/Cognitive Status: Alert/Oriented X3, Normal for patient Plan Anesthesia Type: General, Total IV Consent for Procedure(s) Verified and Reviewed: Yes Code Status: Attempt Resuscitation ASA classification: 3-Severe systemic disease Is this case an emergency?: No
[2023-12-03] MEDS ORDERED: MIDAZOLAM 2 MG/2 ML VIAL ONE (11:32)
[2023-12-03] MEDS ORDERED: fentaNYL 100 MCG/2 ML VIAL ONE (11:32)
[2023-12-03] MEDS ORDERED: GLYCOPYRROLATE 1 MG/5 ML VIAL ONE (11:58)
[2023-12-03] MEDS: LACTATED RINGERS 600 ML IV ONE (12:03)
[2023-12-03 12:23] VITALS: BP 136/71; O2SAT 95
--- NOTE | 2023-12-03 13:14 | ANESTHESIA POST OP EVALUATION ---
Anesthesia Post Eval - Post Anesthesia Eval Vitals: Last Vital Signs Temp 37.3 C 12/03/23 12:03 Pulse 86 12/03/23 12:15 Resp 18 12/03/23 12:15 BP 136/71 H 12/03/23 12:15 Pulse Ox 95 12/03/23 12:15 O2 Flow Rate CV Function Including HR & BP: Stable Pain Control: Satisfactory Nausea & Vomiting: Negative Mental Status: Baseline Respiratory Status: Airway Patent Hydration Status: Satisfactory Anesthesia Complications: None
== END 2023-12-03 10:13 | disposition home or self-care (01) ==
LOC: SDS 10:12
PROVIDERS: ATTEND Surgery
DX: Z12.11 Encounter for screening for malignant neoplasm of colon (principal); K57.30 Diverticulosis of large intestine without perforation or abscess without bleeding; E03.9 Hypothyroidism, unspecified; G89.29 Other chronic pain; Z79.891 Long term (current) use of opiate analgesic; K21.9 Gastro-esophageal reflux disease without esophagitis; E66.9 Obesity, unspecified; Z68.33 Body mass index [BMI] 33.0-33.9, adult; I10 Essential (primary) hypertension; Q05.9 Spina bifida, unspecified
CPT/HCPCS: G0121; J7120

== ENCOUNTER 2024-01-03 07:56 | Outpatient (CLI) | payer MEDICARE, OTHER ==
[2024-01-03 08:17] LABS: BASOPHILS # (AUTO) 0.1 10^3/uL (0.0-0.1); BASOPHILS % (AUTO) 0.9 %; EOSINOPHILS # (AUTO) 0.6 10^3/uL (0.0-0.7); HCT - HEMATOCRIT 45.5 % (37.0-47.0); HGB - HEMOGLOBIN 14.6 g/dL (12.0-16.0); LYMPHOCYTES # (AUTO) 2.9 10^3/uL (1.5-3.5); LYMPHOCYTES % (AUTO) 36.1 %; MEAN CORPUSCULAR HEMOGLOBIN 28.1 pg (27.0-31.0); MEAN CORPUSCULAR HGB CONC 32.1 g/dL (32.0-36.0); MEAN CORPUSCULAR VOLUME 87.5 fL (81.0-99.0); MONOCYTES # (AUTO) 0.5 10^3/uL (0.0-1.0); MONOCYTES % (AUTO) 6.4 %; NEUTROPHILS % (AUTO) 49.1 %; PLT - PLATELET COUNT 337 10^3/uL (130-450); RED CELL DISTRIBUTION WIDTH 12.6 % (12.0-15.0); WHITE BLOOD COUNT 8.1 x10^3/uL (4.8-10.8)
[2024-01-03 08:49] LABS: ALBUMIN 4.3 g/dL (3.2-5.5); ALBUMIN/GLOBULIN RATIO 1.5 (1.0-2.2); ALKALINE PHOSPHATASE 47 IU/L (42-121); ALT ALANINE AMINOTRANSFERASE 14 IU/L (10-60); AST ASPARTATE AMINOTRANSFERASE 17 IU/L (10-42); BILIRUBIN,TOTAL 0.5 mg/dL (0.2-1.0); BUN - BLOOD UREA NITROGEN 20 mg/dL (6-20); CALCIUM 9.9 mg/dL (8.5-10.3); CARBON DIOXIDE - CO2 30 mmol/L (21-32); CHLORIDE 101 mmol/L (101-111); CHOL/HDL RATIO 3.9 (<4.4); CHOLESTEROL 196 mg/dL; CREATININE 0.7 mg/dL (0.6-1.3); GFR - MDRD 84 (>89); GLUCOSE 98 mg/dL (74-104); HDL CHOLESTEROL 50 mg/dL; LDL CHOLESTEROL,CALCULATED 110 mg/dL; LDL/HDL RATIO 2.2 (<4.4); POTASSIUM 3.8 mmol/L (3.5-4.5); SODIUM 139 mmol/L (135-145); TOTAL PROTEIN 7.2 g/dL (6.4-8.9); TRIGLYCERIDES 182 mg/dL (48-352); VLDL CHOLESTEROL 36 mg/dL
[2024-01-03 09:05] LABS: THYROID STIMULATING HORMONE 0.87 uIU/mL (0.34-5.60)
[2024-01-03 10:06] LABS: ESTIMATED AVERAGE GLUCOSE 108 mg/dL (70-100); HEMOGLOBIN A1c% 5.4 % (4.27-6.07)
== END 2024-01-03 07:57 | disposition home or self-care (01) ==
LOC: LAB 07:56
PROVIDERS: ATTEND Family Medicine
DX: I10 Essential (primary) hypertension (principal); M54.12 Radiculopathy, cervical region; R73.9 Hyperglycemia, unspecified; K21.9 Gastro-esophageal reflux disease without esophagitis; M54.16 Radiculopathy, lumbar region; G03.9 Meningitis, unspecified; E03.9 Hypothyroidism, unspecified
CPT/HCPCS: 36415; 80053; 80061; 83036; 83721; 84443; 85025

== ENCOUNTER 2024-05-31 10:31 | Outpatient (CLI) | payer MEDICARE, OTHER ==
--- NOTE | 2024-05-31 14:52 | XRAY Report ---
Ankle 3+V LT HISTORY: 63 years of age, LEFT TIBIAL PAIN TECHNIQUE: Ankle 3+V LT COMPARISON: None. FINDINGS/IMPRESSION: Diffuse soft tissue swelling of the ankle, medial greater than lateral. Small ossification about the distal Achilles tendon, representing prior injury. Mild degenerative changes of the talonavicular asmita nt. Small plantar calcaneal enthesophyte. No acute fracture or dislocation. Reviewed by: Carolina Raines MD on 05/31/2024 2:51 PM PDT Approved by: Carolina Raines MD on 05/31/2024 2:51 PM PDT Station ID: [id number]
== END 2024-05-31 10:32 | disposition home or self-care (01) ==
LOC: DI 10:31
PROVIDERS: ATTEND Family Medicine
DX: M79.662 Pain in left lower leg (principal)